=== PATIENT | female | born 1935 | race Caucasian/White ===

== ENCOUNTER 2018-06-26 21:05 | Emergency (ER) | payer OTHER ==
[2018-06-26 21:14] VITALS: BP 168/74; PULSE 84; TEMP 98.9; BMI 23.0
--- NOTE | 2018-06-26 21:37 | PDOC ---
History of Present Illness - General History Source: Patient Exam Limitations: No Limitations - History of Present Illness Initial Comments: 06/26/18 22:04 The patient is an 82-year-old female with past medical history of HTN, HLD and hypothyroidism present to the emergency department s/p an insect bit a day prior. The patient states last night she was bitten by a yellow jacket on the R. 2nd toe. The patient states earlier today she noticed the formation of a blister that was pushing on the neighboring toes. The patient states she followed up at the urgent care earlier today, where they lanced the blister. The patient was referred to the ED by for evaluation of the wound and possible IV antibiotic administration. The patient reports associated concern of redness thats gradually traveling up the R. foot. Denies any pain. Denies difficulty ambulating. Denies numbness, tingling or loss of sensation. The patient reports a similar incident on June 14, 2018, patient was stung on the medial aspect of the L. foot. The patient states she followed up with the urgent care, where she was prescribed Benadryl, with relief. Denies history of MRSA. Denies prior problems with wound healing. Denies allergies to bees or prior similar incident. Allergies: oxytetracycline HCl, oxytetracycline and erythromycin base Social history: Former smoker. Reports the use of alcohol. Denies the use of recreational drugs. Surgical history: Cholecystectomy PCP: Dr. Jorge Luis Armendariz. <Camelia Chino - Last Filed: 06/26/18 22:25> <Felicia Martinez - Last Filed: 06/27/18 03:43> - General Chief Complaint: Bite Stated Complaint: BEE STING Time Seen by Provider: 06/26/18 21:19 Past History <Camelia Chino - Last Filed: 06/26/18 22:25> - Past Medical History Anemia: No (CHILD-IRON SHOTS A CHILD) Asthma: No Cancer: No Cardiac Disorders: No CVA: No COPD: No CHF: No DVT: No Dementia: No Diabetes: No GI Disorders: No Disorders: No HTN: Yes Hypercholesterolemia: Yes Liver Disease: No Seizures: No Thyroid Disease: Yes (HYPOTHYROIDISM) - Surgical History Abdominal Surgery: No Appendectomy: No Cardiac Surgery: No Cholecystectomy: Yes Lung Surgery: No Neurologic Surgery: No Orthopedic Surgery: No - Suicide/Smoking/Psychosocial Hx Smoking History: Former smoker Have you smoked in the past 12 months: No If you are a former smoker, when did you quit?: 1979 Information on smoking cessation initiated: No Hx Alcohol Use: Yes Drug/Substance Use Hx: No Substance Use Type: Alcohol Hx Substance Use Treatment: No <Felicia Martinez - Last Filed: 06/27/18 03:43> - Past Medical History Allergies/Adverse Reactions: Allergies Allergy/AdvReac Type Severity Reaction Status Date / Time erythromycin base Allergy Severe Vomiting Verified 06/26/18 21:06 [Erythromycin Base] oxytetracycline Allergy Intermediate Vomiting Verified 06/26/18 21:06 [From Terramycin] oxytetracycline HCl Allergy Intermediate Vomiting Verified 06/26/18 21:06 [From Terramycin] Home Medications: Ambulatory Orders Aspirin [Aspir 81] 81 mg PO DAILY 08/26/12 Clindamycin HCl 300 mg PO TID #21 capsule 06/26/18 Losartan Potassium 25 mg PO DAILY 06/26/18 Simvastatin [Zocor -] 20 mg PO HS 06/26/18 Review of Systems - Review of Systems Comments:: 06/26/18 22:04 CONSTITUTIONAL: Absent: fever, no chills, no fatigue EYES: Absent: visual changes ENT: Absent: ear pain, no sore throat CARDIOVASCULAR: Absent: chest pain, no palpitations RESPIRATORY: Absent: cough, no SOB GI: Absent: abdominal pain, no nausea, no vomiting, no constipation, no diarrhea GENITOURINARY: Absent: dysuria, no frequency, no hematuria MUSKULOSKELETAL: (+) Draining lanced wound on the R. 2nd toe. Absent: back pain, no arthralgia, no myalgia SKIN: Absent: rash NEURO: Absent: headache <Camelia Chino - Last Filed: 06/26/18 22:25> *Physical Exam - Vital Signs Last Vital Signs Temp Pulse Resp BP Pulse Ox 98.9 F 84 17 168/74 98 06/26/18 21:06 06/26/18 21:06 06/26/18 21:06 06/26/18 21:06 06/26/18 21:06 - Physical Exam Comments: 06/26/18 22:22 GENERAL: The patient is awake, alert, and fully oriented, in no acute distress. HEAD: Normal with no signs of trauma. EXTREMITIES: (+) Moderately erythematous edematous R. 2nd toe. Moderately generalized erythema and edema with tenderness at the distal phalanx to direct palpation. Dorsal surface of the distal phalanx with small incision draining clear fluid. No pain on passive or active flexion extension of the toe. 2x1 cm faint erythematous, nontender area of the mid dorsum of the foot. Extremely faint erythema of the anterior lower leg just proximal to the ankle Rest of the extremities: Normal range of motion, no edema. No clubbing or cyanosis. No cords, erythema, or tenderness. SKIN: Warm, Dry, normal turgor, no rashes or lesions noted. <Camelia Chino - Last Filed: 06/26/18 22:25> - Vital Signs Last Vital Signs Temp Pulse Resp BP Pulse Ox 98.9 F 84 17 168/74 98 06/26/18 21:06 06/26/18 21:06 06/26/18 21:06 06/26/18 21:06 06/26/18 21:06 <Felicia Martinez - Last Filed: 06/27/18 03:43> Progress Note - Progress Note Progress Note: Documentation has been prepared under my direction and personally reviewed by me in its entirety. I attest that this documented accurately reflects all work, treatment, procedures and medical decision making performed by me. <Felicia Martinez - Last Filed: 06/27/18 03:43> Medical Decision Making - Medical Decision Making As noted above, this 82-year-old woman with a history of hypertension/ hyperlipidemia but no previous history with difficulty with wound healing or cellulitis/abscess formation presents with insect bite/sting of the right second toe. This occurred yesterday and patient believes it was a yellow jacket wasp that stung her. Overnight and during the day today, the area around the envenomation became swollen and vesiculated. She was seen tonight at urgent care where the vesicle was opened. Because of generalized edema/ erythema of the toe and erythematous streak on the dorsum of her foot, suggestive of lymphangitis, she was referred to an emergency room. Patient had similar but less severe reaction after yellowjacket sting of her leg a few months ago. Exam as noted Because of rapid progression of inflammation in the affected toe and possible lymphangitis, patient received vancomycin 1 g IV. Patient tolerated IV infusion of 1 g vancomycin well. She was discharged with prescription for clindamycin 300 mg every 8 hours for one week. She should follow-up either with her PMD, Dr. Armendariz or return here for wound check within the next 48 hours. Meanwhile, she should elevate the right foot as much as possible. <Felicia Martinez - Last Filed: 06/27/18 03:43> *DC/Admit/Observation/Transfer - Attestations Scribe Attestion: 06/26/18 22:22 Documentation prepared by Camelia Chino, acting as medical billing associate for Felicia Martinez MD. <Camelia Chino - Last Filed: 06/26/18 22:25> <Felicia Martinez - Last Filed: 06/27/18 03:43> Diagnosis at time of Disposition: Cellulitis and abscess of toe of right foot - Discharge Dispostion Disposition: HOME Condition at time of disposition: Stable - Prescriptions Prescriptions: Clindamycin HCl 300 mg PO TID #21 capsule - Referrals Referrals: Jorge Luis Armendariz MD [Primary Care Provider] - 2 Days - Patient Instructions Printed Discharge Instructions: Cellulitis Additional Instructions: Elevate right foot to heart level or above as much as possible Protective dressing to wound as needed Clindamycin 300 mg every 8 hours for one week Follow-up with for wound check within 48 hours Return to ER if you have worsening pain/red streaking or if you develop fever/ chills - Post Discharge Activity
[2018-06-26] MEDS ORDERED: VANCOMYCIN 1,000 MG in DEXTROSE 5%-WATER - 250 ML IVPB ONE (21:44)
[2018-06-26] MEDS ORDERED: VANCOMYCIN 1,000 MG VIAL (RESTRICTED TO ID ONLY) ONE (21:51)
== END 2018-06-26 23:37 | disposition home or self-care (01) ==
LOC: FER 21:05
PROC: 0H9MXZZ Drainage of Right Foot Skin, External Approach (ICD-10-PCS; principal; 2018-06-26)
PROC: 3E03329 Introduction of Other Anti-infective into Peripheral Vein, Percutaneous Approach (ICD-10-PCS; 2018-06-26)
DX: L02.611 Cutaneous abscess of right foot (principal); W57.XXXA Bitten or stung by nonvenomous insect and other nonvenomous arthropods, initial encounter; Y93.79 Activity, other specified sports and athletics; Y92.9 Unspecified place or not applicable
CPT/HCPCS: 99282-25

== ENCOUNTER 2019-08-14 11:54 | Emergency (ER) | payer OTHER ==
[2019-08-14 12:08] VITALS: PULSE 71; TEMP 98.4; BMI 24.7
--- NOTE | 2019-08-14 12:13 | PDOC ---
History of Present Illness - General Chief Complaint: Pain Stated Complaint: FABIANO LEG PAIN, BACK PAIN Time Seen by Provider: 08/14/19 12:05 - History of Present Illness Initial Comments: 08/14/19 12:15 84yo F hx HTN, HLD, hypothyroidism, and former smoking presents from home c/o acute on chronic R-sided buttock/sacrum pain xfew hours. 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 Pt was able to ambulate but slowly and in pain. Pt states she was in [facility] prior to bending over. States has herniated disc in lower back area for many years. Denies trauma, fall, hx IVDU, saddle anesthesia, numbness, tingling, weakness, fever, chills, urinary incontinence or retention, bowel incontinence or retention, fatigue, headache, dizziness, vision changes, shortness of breath, cough, chest pain, palpitations, leg swelling, abdominal pain, blood in stool, diarrhea, constipation, nausea, vomiting, dysuria, hematuria, confusion. Past History - Past Medical History Allergies/Adverse Reactions: Allergies Allergy/AdvReac Type Severity Reaction Status Date / Time erythromycin base Allergy Severe Vomiting Verified 08/14/19 12:04 [Erythromycin Base] oxytetracycline Allergy Intermediate Vomiting Verified 08/14/19 12:04 [From Terramycin] oxytetracycline HCl Allergy Intermediate Vomiting Verified 08/14/19 12:04 [From Terramycin] Home Medications: Ambulatory Orders Aspirin [Aspir 81] 81 mg PO DAILY 08/26/12 Losartan Potassium 25 mg PO DAILY 06/26/18 Simvastatin [Zocor -] 20 mg PO DAILY 06/26/18 Cholecalciferol (Vitamin D3) [Vitamin D] 2,000 unit PO DAILY 08/14/19 Ibuprofen [Advil -] 400 mg PO ONCE 08/14/19 Ketorolac Tromethamine [Toradol] 10 mg PO Q6H PRN 5 Days #20 tablet 08/14/19 hydrOXYzine PAMOATE [Vistaril -] 25 mg PO TID PRN 5 Days #15 capsule 08/14/19 Anemia: No (CHILD-IRON SHOTS A CHILD) Asthma: No Cancer: No Cardiac Disorders: No CVA: No COPD: No CHF: No DVT: No Dementia: No Diabetes: No GI Disorders: No Disorders: No HTN: Yes Hypercholesterolemia: Yes Liver Disease: No Seizures: No Thyroid Disease: Yes (HYPOTHYROIDISM) - Surgical History Abdominal Surgery: No Appendectomy: No Cardiac Surgery: No Cholecystectomy: Yes Lung Surgery: No Neurologic Surgery: No Orthopedic Surgery: No - Psycho Social/Smoking Cessation Hx Smoking History: Never smoked Have you smoked in the past 12 months: No If you are a former smoker, when did you quit?: 1979 Information on smoking cessation initiated: No Hx Alcohol Use: No Drug/Substance Use Hx: No Substance Use Type: Alcohol Hx Substance Use Treatment: No Review of Systems - Review of Systems Comments:: 08/14/19 12:15 Constitutional: Negative for chills, fever, fatigue. HENT: Negative for sore throat, rhinorrhea, congestion. Eyes: Negative for visual disturbance. Respiratory: Negative for shortness of breath, cough, and wheezing. Cardiovascular: Negative for chest pain, palpitations, and leg swelling. Gastrointestinal: Negative for abdominal pain, blood in stool, constipation, diarrhea, nausea, and vomiting. Genitourinary: Negative for dysuria, flank pain, and hematuria. Musculoskeletal: Positive for back pain. Negative for myalgias and neck pain. Skin: Negative for rash. Neurological: Negative for light-headedness, dizziness, syncope, weakness, numbness and headaches. Psychiatric/Behavioral: Negative for behavioral problems and confusion. *Physical Exam - Vital Signs Last Vital Signs Temp Pulse Resp BP Pulse Ox 98.4 F 71 18 180/75 H 97 08/14/19 11:55 08/14/19 11:55 08/14/19 11:55 08/14/19 11:55 08/14/19 11:55 - Physical Exam Comments: 08/14/19 12:15 Gen: Alert, NAD, appears stiff, in mild distress 2/2 pain HEENT: PERRL, EOMI, MMM, NCAT. No conjunctival pallor. Sclera are non-icteric. Oropharynx is clear. CV: Regular rate and rhythm. No murmurs, rubs, or gallops. PULM: No resp distress. CTAB, no wheezes, rales, or rhonchi. ABD: soft, NT/ND, no rebound tenderness or guarding, no CVA tenderness. BACK: No TTP of c/t/l-spine. +TTP R sacrum/buttocks. No erythema or warmth of back or buttocks. No step-offs or deformities. Negative debslyvy-[id number] test. MSK: No bony deformities. 2+ pulses in all extremities. NEURO: AAOx3. PERRL. CN 2-12 intact. 5/5 strength in all extremities. Sensation to light touch intact in all extremities. No pronator drift. No dysmetria. No dysdiadochokinesia. No abnormal nystagmus. EXTREMITIES: No cyanosis. No clubbing. No edema. No calf tenderness. PSYCH: Normal mood and thought pattern. SKIN: Warm and dry. Normal capillary refill. No rashes. No jaundice. Medical Decision Making - Medical Decision Making 08/14/19 12:15 84yo F hx HTN, HLD, hypothyroidism, and former smoking presents from home c/o acute on chronic R-sided buttock/sacrum pain xfew hours. Pt was bending over at [facility] this AM and felt sudden onset R-sided buttock/sacrum pain, radiating down b/l legs, sharp, constant, worse with sitting, minimal improvement with 2 advil at 0930, similar to prior episodes also brought on by bending or lifting where pt states she was treated with a shot and muscle relaxers, last episode over 1 year ago. Pt was able to ambulate but slowly and in pain. Pt states she was in [place] prior to bending over. States has herniated disc in lower back area for many years. Denies trauma, fall, hx IVDU, saddle anesthesia, numbness, tingling, weakness, fever, chills, urinary incontinence or retention, bowel incontinence or retention, fatigue, headache, dizziness, vision changes, shortness of breath, cough, chest pain, palpitations, leg swelling, abdominal pain, blood in stool, diarrhea, constipation, nausea, vomiting, dysuria, hematuria, confusion. Afebrile, hemodynamically stable, appears stiff, in mild distress 2/2 pain, no c /t/l-spine midline TTP, +TTP R sacrum/buttocks, no erythema or warmth of back or buttocks, neurologically intact. Back pain R buttocks location, no TTP of c/t/l-spine, no saddle anesthesia or numbness/tingling, no incontinence or retention, atraumatic, afebrile - no s/s concerning for spinal fx, spinal abscess, or cauda equina - no further testing indicated. No numbness or tingling indicative of radiculopathy. Most likely muscle spasm exacerbating chronic low back pain. -Toradol and Vistaril for pain -Reassess -Dispo: likely d/c home w/PCP f/u 08/14/19 01:51 Pt feels better s/p meds. Able to stand up and ambulate on own. Will dc home with Toradol, Vistaril, orthopedic referral, and PCP f/u. Return precautions given. Pt understands all dc instructions and all questions were answered. Discharge - Discharge Information Problems reviewed: Yes Clinical Impression/Diagnosis: Back pain of lumbar region with sciatica Condition: Improved Disposition: HOME - Admission No - Additional Discharge Information Prescriptions: hydrOXYzine PAMOATE [Vistaril -] 25 mg PO TID PRN 5 Days #15 capsule PRN Reason: Back Pain Ketorolac Tromethamine [Toradol] 10 mg PO Q6H PRN 5 Days #20 tablet PRN Reason: Back Pain - Follow up/Referral Referrals: Jorge Luis Armendariz MD [Primary Care Provider] - - Patient Discharge Instructions Patient Printed Discharge Instructions: DI for Back Pain With Sciatica Additional Instructions: You have been seen in the Emergency Department for back pain. Your symptoms and physical exam show no signs concerning for an emergent condition such as a fracture. There are many possible causes of back pain, but yours is most likely due to a muscle strain or your herniated disc. The pain should resolve with rest and time. For now, we have prescribed you two medications to help with the pain. Take them as directed as needed. If you experience an upset stomach with the medications, you can take Pepcid, an over the counter medication, per instructions on the medication. While taking the Vistaril, do not drive or operate heavy machinery as it can cause drowsiness. Rest and protect your back. Stop, change, or take a break from any activity that may be causing your pain and gradually return to activity as you feel better. Follow-up with your primary care doctor within 1 week. Return to the ED immediately if you experience worsening back pain not controlled by medications, numbness or tingling, difficulty walking, fever, chest pain, difficulty breathing, dizziness, or any other new or worsening symptom. - Post Discharge Activity
[2019-08-14] MEDS ORDERED: KETOROLAC TROMETHAMINE 30 MG/1 ML VIAL IM ONE (12:33)
[2019-08-14] MEDS ORDERED: hydrOXYzine PAMOATE 25 MG CAPSULE (FP) PO ONE ×2 (12:33→12:40)
[2019-08-14] MEDS ORDERED: KETOROLAC TROMETHAMINE 30 MG/1 ML VIAL ONE (12:40)
[2019-08-14 14:00] VITALS: BP 155/72
--- NOTE | 2019-08-14 14:11 | PDOC ---
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 Pain radiates from the right sacral region down both legs. But there is no numbness tingling or weakness noted. There is a history of chronic recurrent back pain with radiculopathy in the past. - Physicial Exam PE: 08/14/19 14:07 Physical exam: Alert and oriented well-developed well-nourished cooperative. Moderate distress due to back pain and stiffness Afebrile, vital signs normal HEENT clear Neck supple without bruit mass or nodes Chest clear CV regular without murmur rub or gallop Abdomen benign LS spine: There is straightening of the normal lumbar lordosis. There is no point tenderness over the vertebral bodies. There is no erythema warmth or other sign of inflammation. Patient indicates pain over the right sacral area of the buttocks. Straight leg raising is negative. No distal sensory or motor deficits. No saddle anesthesia or urinary incontinence/retention. - Medical Decision Making 08/14/19 14:08 Impression: Exacerbation of chronic low back pain due to pending this morning. No evidence of radiculopathy. No evidence of bowel or bladder dysfunction. Plan: Symptomatic treatment and follow-up low back strain Patient responded well to Toradol and Vistaril. Spasm seemed to subside and she was able to stand upright and ambulate without difficulty. Medication prescribed and she is instructed to follow-up with television specialist for further evaluation and treatment, or return to ER if symptoms worsen or additional symptoms develop. Fully ambulatory and in no significant pain at discharge with family to follow up as directed
== END 2019-08-14 14:00 | disposition home or self-care (01) ==
LOC: SUPCPDRO 11:54 → FER 11:54
PROC: 3E0233Z Introduction of Anti-inflammatory into Muscle, Percutaneous Approach (ICD-10-PCS; principal; 2019-08-14)
DX: M54.40 Lumbago with sciatica, unspecified side (principal); E03.9 Hypothyroidism, unspecified; I10 Essential (primary) hypertension; E78.5 Hyperlipidemia, unspecified; Z87.891 Personal history of nicotine dependence; Z88.8 Allergy status to other drugs, medicaments and biological substances
CPT/HCPCS: 99283-25